=== PATIENT | female | born 1955 | race Caucasian/White ===

== ENCOUNTER → 2018-03-31 | Outpatient (CLI) | payer OTHER ==
[~2018-03-31] MED LIST: AMIT150T PO; FENTANYL PF 250 MCG/5ML ONE; GABA300C10 PO; LEVO125T5 PO; LISI1TAB5 PO; METF10003 PO; METO-95 PO; MIDAZOLAM 1 MG/ML, 2ML ONE; PANT40TA3 PO; SIMV40TA3 PO; TIZA4CAP PO
[2018-03-31 13:55] LABS: ALANINE AMINOTRANSFERASE 27 U/L (12-78); ALBUMIN 3.6 g/dL (3.4-5.0); ANION GAP 7 mmol/L (5-15); CALCIUM 8.6 mg/dL (8.5-10.1); CHLORIDE 110 mmol/L (98-107); CREATININE 1.06 mg/dL (0.55-1.02)
[2018-03-31 13:57] LABS: ALKALINE PHOSPHATASE 90 U/L (45-117); BILIRUBIN,TOTAL 0.3 mg/dL (0.2-1.0); TOTAL PROTEIN 7.7 g/dL (6.4-8.2)
== END | disposition home or self-care (01) ==
LOC: STAR 12:40
PROVIDERS: ATTEND Plastic Surgery
DX: Z01.812 Encounter for preprocedural laboratory examination (principal)
CPT/HCPCS: 36415; 80053; 93005

== ENCOUNTER 2018-04-06 13:53 | Day surgery (SDC) | payer OTHER ==
[~2018-04-06] VITALS: Ht 172.7 cm; Wt 114.5 kg
[~2018-04-06 13:53] MED LIST changes: -FENTANYL PF 250 MCG/5ML ONE; -MIDAZOLAM 1 MG/ML, 2ML ONE
[2018-04-06] MEDS ORDERED: LACTATED RINGERS 1,000 ML IV SCH (14:30)
[2018-04-06 14:32] VITALS: BP 120/74
[2018-04-06] MEDS ORDERED: BUPIVACAINE/PF-EPI 0.25% 1:200K ONE (14:47)
[2018-04-06] MEDS ORDERED: ACETAMINOPHEN 500 MG TABLET ONE ×2 (14:52)
[2018-04-06] MEDS ORDERED: GABAPENTIN 300 MG CAPSULE ONE (14:52)
[2018-04-06] MEDS ORDERED: SCOPOLAMINE PATCH, 1.5MG PATCH.TD72 TD ONE (14:54)
[2018-04-06] MEDS ORDERED: DEXAMETHASONE 4 MG/ML, 1ML ONE (15:10)
[2018-04-06] MEDS ORDERED: CEFAZOLIN 1,000 MG ONE (15:10)
[2018-04-06] MEDS ORDERED: PROPOFOL 10 MG/ML, 20ML ONE (15:10)
[2018-04-06] MEDS ORDERED: ONDANSETRON 2MG/ML, 2ML ONE (15:10)
[2018-04-06] MEDS ORDERED: BUPIVACAINE/PF-EPI 0.25% 1:200K IM ONE (15:38)
[2018-04-06] MEDS ORDERED: MORPHINE SULFATE 4 MG/ML, 1ML IVPush PRN (16:00)
[2018-04-06] MEDS ORDERED: MEPERIDINE/PF 25MG/0.5ML IVPush PRN (16:00)
[2018-04-06] MEDS ORDERED: DIAZEPAM 5 MG/ML, 2ML IVPush PRN (16:00)
[2018-04-06] MEDS ORDERED: OXYcodone 5 MG/5 ML ORAL.SOL UDC PO PRN (16:00)
[2018-04-06] MEDS ORDERED: FENTANYL PF 100 MCG/2ML ONE ×2 (17:11→17:38)
[2018-04-06] MEDS ORDERED: MORPHINE SULFATE 4 MG/ML, 1ML ONE (17:12)
[2018-04-06] MEDS ORDERED: OXYcodone 5 MG/5 ML ORAL.SOL UDC ONE (17:12)
[2018-04-06] MEDS: FENTANYL PF 100 MCG/2ML IV PRN ×4 (17:20→18:03)
[2018-04-06] MEDS ORDERED: DIAZEPAM 5 MG TABLET ONE (17:39)
[2018-04-06] MEDS ORDERED: DIAZEPAM 5 MG TABLET PO ONE (18:00)
== END 2018-04-06 20:50 | disposition home or self-care (01) ==
LOC: OR 13:53 → 4NOR 18:36 → OR 20:50
PROVIDERS: ATTEND Plastic Surgery
DX: N62 Hypertrophy of breast (principal); N64.89 Other specified disorders of breast; E11.9 Type 2 diabetes mellitus without complications; F17.210 Nicotine dependence, cigarettes, uncomplicated; K21.9 Gastro-esophageal reflux disease without esophagitis; E78.2 Mixed hyperlipidemia; E89.0 Postprocedural hypothyroidism; Z98.890 Other specified postprocedural states; Z79.899 Other long term (current) drug therapy; Z85.89 Personal history of malignant neoplasm of other organs and systems; Z90.49 Acquired absence of other specified parts of digestive tract; Z90.710 Acquired absence of both cervix and uterus; Z90.722 Acquired absence of ovaries, bilateral; Z72.89 Other problems related to lifestyle
CPT/HCPCS: 19318; 82962; 88307; J0690; J1100; J2250; J2405; J2704; J3010

== ENCOUNTER 2019-01-25 14:56 | Inpatient (IN) | payer MEDICARE, OTHER ==
[~2019-01-25] VITALS: Ht 170.2 cm; Wt 100.1 kg
[~2019-01-25 14:56] MED LIST changes: -METF10003 PO; +METF10007 PO
[2019-01-25] MEDS ORDERED: SODIUM CHLORIDE 0.9% 1,000 ML IV ONE (15:28)
[2019-01-25] MEDS ORDERED: SODIUM CHLORIDE 0.9% 1,000ML IVBOLUS ONE ×2 (15:30→16:30)
[2019-01-25] MEDS ORDERED: SODIUM CHLORIDE FLUSH 10ML SYR IVF ONE (15:30)
--- NOTE | 2019-01-25 15:31 | NUR ---
PT RANCHO [facility] FROM [facility] FOR ALTERED MENTAL STATUS X2 WEEKS AND ABNORMAL LABS DRAWN YESTERDAY. LAB RESULTS UNKNOWN AT THIS TIME. PT CONNECTED TO ALL MONITORS UPON ARRIVAL. AFIB 90S-100S. 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 PER SON, NO HX AFIB. 2L NC PLACED FOR RA O2 SAT 90%. BP 86/50. IV ESTABLISHED IN ROUTE AND 150ML NS ADMINISTERED DUMBWAITER OPERATOR FOR HYPOTENSION. EDMD ASSESSMENT COMPLETE. AWAITING ORDERS AT THIS TIME.
--- NOTE | 2019-01-25 15:55 | NUR ---
PT RESTING IN ROOM. REMAINS ALTERED. SON AT BEDSIDE TO REORIENT FREQUENTLY. VSS. MEDIACTED PER MAR. IVF INFUSING NOW. UA COLLECTED VIA STRAIGHT CATH. LAB AT TO DRAW NOW. CXR COMPLETE. AWAITING RESULTS.
[2019-01-25 16:13] LABS: CULTURE INDICATED? YES; MICROSCOPIC INDICATED
[2019-01-25] MEDS ORDERED: CEFTRIAXONE PMX 1GM/50ML 50 ML IV ONE (16:30)
[2019-01-25 16:55] LABS: BASOPHILS # (AUTO) 0.03 x10^3/uL (0-0.1); BASOPHILS % (AUTO) 0 % (0-1); EOSINOPHILS % (AUTO) 0 % (1-7); LYMPHOCYTES # (AUTO) 2.35 x10^3/uL (1-3.4); LYMPHOCYTES % (AUTO) 29 % (22-44); MD NO; MEAN CORPUSCULAR HEMOGLOBIN 30.2 pg (27.0-34.8); MEAN CORPUSCULAR HGB CONC 31.1 g/dL (32.4-35.8); MEAN CORPUSCULAR VOLUME 97.4 fL (80-100); MEAN PLATELET VOLUME 7.7 fL (7.4-10.4); MONOCYTES % (AUTO) 1 % (2-9); NEUTROPHILS # (AUTO) 5.61 x10^3/uL (1.8-6.8); NEUTROPHILS % (AUTO) 69 % (42-75); PLATELET COUNT 316 x10^3/uL (130-400); RED BLOOD COUNT 3.12 x10^6/uL (3.82-5.3); RED CELL DISTRIBUTION WIDTH 20.4 % (9.6-15.2)
[2019-01-25 17:05] LABS: INTERNATIONAL NORMALIZED RATIO 1.14 (0.93-1.1); PROTHROMBIN TIME 11.9 Seconds (9.6-11.5)
[2019-01-25 17:09] LABS: ALANINE AMINOTRANSFERASE 16 U/L (12-78); ANION GAP 9 mmol/L (5-15); CALCIUM 7.5 mg/dL (8.5-10.1); CHLORIDE 119 mmol/L (98-107); CREATININE 1.06 mg/dL (0.55-1.02)
[2019-01-25 17:14] LABS: ALKALINE PHOSPHATASE 192 U/L (45-117); BILIRUBIN,TOTAL 0.5 mg/dL (0.2-1.0)
--- NOTE | 2019-01-25 17:22 | NUR ---
FIRST BOLUS STILL INFUSING ON PRESSURE BAG. MULTIPLE UNSUCCESSFUL ATTEMPTS AT IV STARTS FOR SECOND IV. SBP REMAINS IN THE 70S. ALL OTHER VSS. US GUIDED IV BEING ATTEMPTED NOW.
[2019-01-25] MEDS ORDERED: ONDANSETRON 2MG/ML, 2ML IVPush ONE (18:00)
[2019-01-25] MEDS ORDERED: NOREPINEPHRINE 4 MG in SODIUM CHLORIDE 0.9% 246 ML IV PRN ×2 (18:57→20:47)
--- NOTE | 2019-01-25 19:00 | NUR ---
REPORT FROM ASHLEIGH MARRERO. CENTERAL LINE PLACED. PT HYPOTENSIVE. ASKED MT TO CALL PHARMACY FOR LEVO.
--- NOTE | 2019-01-25 19:10 | NUR ---
REQUESTED ASSITANCE FROM HOTEL ASSISTANT MANAGER.
--- NOTE | 2019-01-25 19:46 | NUR ---
TASK NURSE; FIRST CONTACT WITH PT, INCREASED LEVOPHED BP RESPONDED IMEDIATLY
[2019-01-25] MEDS ORDERED: ONDANSETRON 2MG/ML, 2ML ONE (19:53)
[2019-01-25] MEDS ORDERED: CEFTRIAXONE PMX 1GM/50ML 50 ML ONE (19:53)
[2019-01-25] MEDS ORDERED: SODIUM CHLORIDE FLUSH 10ML SYR IVF PRN (20:00)
--- NOTE | 2019-01-25 20:15 | NUR ---
LATE ENTRY: TEMP BANEGAS PLACED. LEFT EJ 18 ESTABLISHED BUT VERY POSITIONAL. IVF CONTINUED IN BOTH LINES WITH LITTLE RESPONE IN BP. WATER SOFTENER SERVICER NOTIFIED. PT MOVED TO T4 AND CENTRAL LINE PLACED. REPORT GIVEN TO ASHLEIGH WALKER.
--- NOTE | 2019-01-25 20:34 | NUR ---
AWAITING ADMIT, PT IN NAD RESTING COMFORTABLY
[2019-01-25] MEDS ORDERED: ONDANSETRON 2MG/ML, 2ML IVPush PRN (21:00)
[2019-01-25] MEDS ORDERED: PHARMACY MAY ADJ FOR RENAL FX MC PRN (21:00)
--- NOTE | 2019-01-25 22:23 | NUR ---
REPORT TO DELIO PT TO ICU WITH RN AND TECH ON MONITORS
[2019-01-25 22:51] LABS: TROPONIN I < 0.015 ng/mL (0.000-0.045)
[2019-01-26] MEDS: NOREPINEPHRINE 8 MG in SODIUM CHLORIDE 0.9% 242 ML IV PRN ×3 (01:03→23:16)
[2019-01-26] MEDS ORDERED: VASOPRESSIN 100 UNIT in SODIUM CHLORIDE 0.9% 495 ML IV PRN (01:30)
[2019-01-26] MEDS ORDERED: SODIUM CHLORIDE 0.9% 1,000 ML IV SCH (01:30)
[2019-01-26] MEDS ORDERED: CIPROFLOXACIN/PMX 400MG/200ML 200 ML IV ONE (01:30)
[2019-01-26] MEDS ORDERED: PIPERACILLIN/TAZO/PMX 4.5GM 100 ML IV SCH (01:30)
[2019-01-26] MEDS ORDERED: ALBUMIN HUMAN 5% 500 ML IV ONE (01:30)
[2019-01-26 02:12] LABS: BASOPHILS # (AUTO) 0.01 x10^3/uL (0-0.1); BASOPHILS % (AUTO) 0 % (0-1); EOSINOPHILS % (AUTO) 0 % (1-7); LYMPHOCYTES # (AUTO) 0.97 x10^3/uL (1-3.4); LYMPHOCYTES % (AUTO) 12 % (22-44); MD NO; MEAN CORPUSCULAR HEMOGLOBIN 29.9 pg (27.0-34.8); MEAN CORPUSCULAR HGB CONC 30.9 g/dL (32.4-35.8); MEAN CORPUSCULAR VOLUME 96.8 fL (80-100); MEAN PLATELET VOLUME 7.6 fL (7.4-10.4); MONOCYTES # (AUTO) 0.08 x10^3/uL (0.2-0.8); MONOCYTES % (AUTO) 1 % (2-9); NEUTROPHILS # (AUTO) 7.13 x10^3/uL (1.8-6.8); NEUTROPHILS % (AUTO) 87 % (42-75); PLATELET COUNT 294 x10^3/uL (130-400); RED BLOOD COUNT 3.72 x10^6/uL (3.82-5.3); RED CELL DISTRIBUTION WIDTH 19.3 % (9.6-15.2)
[2019-01-26 02:22] LABS: ANION GAP 12 mmol/L (5-15); CALCIUM 6.6 mg/dL (8.5-10.1); CHLORIDE 127 mmol/L (98-107); CREATININE 1.07 mg/dL (0.55-1.02)
[2019-01-26 02:26] LABS: TROPONIN I < 0.015 ng/mL (0.000-0.045)
[2019-01-26] MEDS: LINEZOLID PMX 600MG/300ML 300 ML IV SCH ×2 (02:31→15:06)
[2019-01-26 02:39] LABS: PREALBUMIN 5.4 mg/dL (20.0-40.0)
[2019-01-26 04:12] VITALS: BP 96/69
[2019-01-26] MEDS: PIPERACILLIN/TAZO/PMX 3.375GM 50 ML IV SCH ×3 (08:39→19:34)
[2019-01-26] MEDS ORDERED: CEFTRIAXONE PMX 1GM/50ML 50 ML IV SCH (09:00)
[2019-01-26 11:21] LABS: CLOSTRIDIUM DIFFICILE ANTIGEN POSITIVE; CLOSTRIDIUM DIFFICILE TOXIN POSITIVE (Negative)
[2019-01-26] MEDS: FAMOTIDINE 20 MG/2 ML IVPush SCH ×2 (11:37→20:45)
[2019-01-26] MEDS: ENOXAPARIN 40 MG/0.4 ML SQ SCH (11:37)
[2019-01-26] MEDS: VANCOMYCIN 50 MG/ML ORAL SUSP PO SCH ×2 (12:00→19:28)
[2019-01-26] MEDS: INSULIN LISPRO 100 UNITS/ML, PEN SQ-INSULIN SCH ×3 (12:21→20:45)
[2019-01-26 13:18] LABS: ALANINE AMINOTRANSFERASE 12 U/L (12-78); ALBUMIN 1.3 g/dL (3.4-5.0); ANION GAP 14 mmol/L (5-15); CALCIUM 6.5 mg/dL (8.5-10.1); CHLORIDE 123 mmol/L (98-107); CREATININE 1.28 mg/dL (0.55-1.02)
[2019-01-26 13:20] LABS: ALKALINE PHOSPHATASE 131 U/L (45-117); BILIRUBIN,TOTAL 0.3 mg/dL (0.2-1.0); TOTAL PROTEIN 4.3 g/dL (6.4-8.2)
[2019-01-26] MEDS: SODIUM CHLORIDE 0.9% 1,000 ML IV SCH (13:42)
[2019-01-27] MEDS: VANCOMYCIN 50 MG/ML ORAL SUSP PO SCH ×5 (00:07→23:48)
[2019-01-27] MEDS: SODIUM CHLORIDE 0.9% 1,000 ML IV SCH (00:18)
[2019-01-27] MEDS: PIPERACILLIN/TAZO/PMX 3.375GM 50 ML IV SCH ×4 (02:06→21:30)
[2019-01-27] MEDS: LINEZOLID PMX 600MG/300ML 300 ML IV SCH ×2 (02:41→15:34)
[2019-01-27 04:00] VITALS: BP 88/48
[2019-01-27 04:14] LABS: MEAN CORPUSCULAR HEMOGLOBIN 30.2 pg (27.0-34.8); MEAN CORPUSCULAR HGB CONC 30.9 g/dL (32.4-35.8); MEAN CORPUSCULAR VOLUME 97.6 fL (80-100); RED BLOOD COUNT 2.73 x10^6/uL (3.82-5.3); RED CELL DISTRIBUTION WIDTH 19.2 % (9.6-15.2)
[2019-01-27 04:32] LABS: MD YES
[2019-01-27 04:33] LABS: MEAN PLATELET VOLUME 8.2 fL (7.4-10.4); PLATELET COUNT 169 x10^3/uL (130-400)
[2019-01-27 04:39] LABS: BAND#(MANUAL) 0.37 x10^3/uL; BANDS%(MANUAL) 4 % (0-7); LYMPH#(MANUAL) 1.38 x10^3/uL (1-3.4); LYMPHS% (MANUAL) 15 % (22-44); SEG#(MANUAL) 7.45 x10^3/uL (1.8-6.8); SEGS% (MANUAL) 81 % (42-75)
[2019-01-27 04:40] LABS: ANISOCYTOSIS 1+; POLYCHROMASIA 1+
[2019-01-27 04:41] LABS: <PLATELET ESTIMATE> ADEQUATE; <PLT MORPHOLOGY> NORMAL PLT MORPH
[2019-01-27 07:43] LABS: ALANINE AMINOTRANSFERASE 11 U/L (12-78); ANION GAP 12 mmol/L (5-15); CHLORIDE 126 mmol/L (98-107); CREATININE 1.19 mg/dL (0.55-1.02)
[2019-01-27 07:45] LABS: ALKALINE PHOSPHATASE 117 U/L (45-117); BILIRUBIN,TOTAL 0.2 mg/dL (0.2-1.0); TOTAL PROTEIN 3.9 g/dL (6.4-8.2)
[2019-01-27] MEDS: INSULIN LISPRO 100 UNITS/ML, PEN SQ-INSULIN SCH ×4 (08:12→21:31)
[2019-01-27] MEDS: METRONIDAZOLE PMX 500MG/100ML 100 ML IV SCH ×3 (09:30→21:29)
[2019-01-27] MEDS: SODIUM BICARB 8.4% IV SCH ×2 (09:32→21:29)
[2019-01-27] MEDS: DEXTROSE 5% IV SCH ×2 (09:32→21:29)
[2019-01-27] MEDS: POTASSIUM CHLORIDE IV SCH ×2 (09:32→21:29)
[2019-01-27] MEDS: FAMOTIDINE 20 MG/2 ML IVPush SCH ×2 (09:40→21:29)
[2019-01-27] MEDS: ENOXAPARIN 40 MG/0.4 ML SQ SCH (09:40)
[2019-01-27] MEDS: NOREPINEPHRINE 8 MG in SODIUM CHLORIDE 0.9% 242 ML IV PRN ×2 (10:59→21:29)
[2019-01-27] MEDS ORDERED: OMNIPAQUE 350 MG/ML, 100ML BOTTLE ONE (11:47)
[2019-01-27] MEDS: ACETAMINOPHEN 325 MG TABLET PO PRN (23:48)
[2019-01-28] MEDS: METRONIDAZOLE PMX 500MG/100ML 100 ML IV SCH ×2 (03:40→08:51)
[2019-01-28] MEDS: PIPERACILLIN/TAZO/PMX 3.375GM 50 ML IV SCH ×2 (03:40→09:29)
[2019-01-28 04:00] VITALS: BP 106/69
[2019-01-28] MEDS: LINEZOLID PMX 600MG/300ML 300 ML IV SCH (04:00)
[2019-01-28 04:46] LABS: MEAN CORPUSCULAR HEMOGLOBIN 30.1 pg (27.0-34.8); MEAN CORPUSCULAR VOLUME 97.1 fL (80-100); MEAN PLATELET VOLUME 8.7 fL (7.4-10.4); PLATELET COUNT 162 x10^3/uL (130-400); RED BLOOD COUNT 2.76 x10^6/uL (3.82-5.3)
[2019-01-28 04:48] LABS: ALANINE AMINOTRANSFERASE 11 U/L (12-78); ALBUMIN 0.9 g/dL (3.4-5.0); ANION GAP 12 mmol/L (5-15); CHLORIDE 123 mmol/L (98-107); CREATININE 1.19 mg/dL (0.55-1.02)
[2019-01-28 04:50] LABS: ALKALINE PHOSPHATASE 119 U/L (45-117); BILIRUBIN,TOTAL 0.2 mg/dL (0.2-1.0); TOTAL PROTEIN 3.7 g/dL (6.4-8.2)
[2019-01-28 04:56] LABS: CALCIUM 5.7 mg/dL (8.5-10.1)
[2019-01-28 05:24] LABS: BASOPHILS # (AUTO) 0.03 x10^3/uL (0-0.1); BASOPHILS % (AUTO) 0 % (0-1); EOSINOPHILS % (AUTO) 0 % (1-7); LYMPHOCYTES % (AUTO) 21 % (22-44); MD SCAN; MONOCYTES # (AUTO) 0.02 x10^3/uL (0.2-0.8); MONOCYTES % (AUTO) 0 % (2-9); NEUTROPHILS # (AUTO) 8.04 x10^3/uL (1.8-6.8); NEUTROPHILS % (AUTO) 78 % (42-75)
[2019-01-28] MEDS: ACETAMINOPHEN 325 MG TABLET PO PRN (05:29)
[2019-01-28] MEDS: VANCOMYCIN 50 MG/ML ORAL SUSP PO SCH (05:30)
[2019-01-28] MEDS ORDERED: FENTANYL PF 100 MCG/2ML IV PRN (08:30)
[2019-01-28] MEDS: FAMOTIDINE 20 MG/2 ML IVPush SCH ×2 (08:51→18:23)
[2019-01-28] MEDS: ENOXAPARIN 40 MG/0.4 ML SQ SCH (08:51)
[2019-01-28] MEDS: NOREPINEPHRINE 8 MG in SODIUM CHLORIDE 0.9% 242 ML IV PRN (08:58)
[2019-01-28] MEDS ORDERED: INSULIN LISPRO 100 UNITS/ML, PEN SQ-INSULIN SCH (09:00)
[2019-01-28] MEDS: DEXTROSE 5% IV SCH (09:29)
[2019-01-28] MEDS: SODIUM BICARB 8.4% IV SCH (09:29)
[2019-01-28] MEDS: POTASSIUM CHLORIDE IV SCH (09:29)
[2019-01-28] MEDS ORDERED: LORazepam INTENSOL 2 MG/ML SL PRN (11:00)
[2019-01-28] MEDS ORDERED: MORPHINE SULFATE 4 MG/ML, 1ML IVPush PRN ×2 (11:00)
[2019-01-28] MEDS ORDERED: LORazepam 2 MG/ML, 1ML IVPush PRN (11:00)
[2019-01-28] MEDS ORDERED: morphine SULFATE ORAL.CONC 20 MG/ML SL PRN (11:00)
[2019-01-28] MEDS ORDERED: morphine SULFATE ORAL.CONC 20 MG/ML BC PRN (11:00)
[2019-01-28] MEDS ORDERED: morphine SULFATE 125 MG in SODIUM CHLORIDE 0.9% 237.5 ML IV PRN (21:30)
== END 2019-01-29 00:37 | disposition expired | DRG 871 ==
LOC: ED 20:38 → EDIP 20:45 → ICU 22:12 → CCU 01-27 14:25 → 3NW 01-28 18:04
PROVIDERS: ADMIT Internal Medicine; ATTEND Internal Medicine
PROC: 02HV33Z Insertion of Infusion Device into Superior Vena Cava, Percutaneous Approach (ICD-10-PCS; principal; 2019-01-25)
PROC: B548ZZA Ultrasonography of Superior Vena Cava, Guidance (ICD-10-PCS; 2019-01-25)
PROC: 0T9B70Z Drainage of Bladder with Drainage Device, Via Natural or Artificial Opening (ICD-10-PCS; 2019-01-25)
DX: A41.9 Sepsis, unspecified organism (principal); L89.154 Pressure ulcer of sacral region, stage 4; R65.21 Severe sepsis with septic shock; E43 Unspecified severe protein-calorie malnutrition; G92 Toxic encephalopathy; A04.72 Enterocolitis due to Clostridium difficile, not specified as recurrent; N12 Tubulo-interstitial nephritis, not specified as acute or chronic; E87.0 Hyperosmolality and hypernatremia; I10 Essential (primary) hypertension; E11.9 Type 2 diabetes mellitus without complications; M19.90 Unspecified osteoarthritis, unspecified site; Z51.5 Encounter for palliative care; E66.9 Obesity, unspecified; D63.8 Anemia in other chronic diseases classified elsewhere; E03.9 Hypothyroidism, unspecified; I48.91 Unspecified atrial fibrillation; B96.20 Unspecified Escherichia coli [E. coli] as the cause of diseases classified elsewhere; B95.2 Enterococcus as the cause of diseases classified elsewhere; Z66 Do not resuscitate; R31.9 Hematuria, unspecified; Z74.01 Bed confinement status; Z79.84 Long term (current) use of oral hypoglycemic drugs; Z79.899 Other long term (current) drug therapy; Z68.34 Body mass index [BMI] 34.0-34.9, adult; Z88.6 Allergy status to analgesic agent; Z88.8 Allergy status to other drugs, medicaments and biological substances; L89.152 Pressure ulcer of sacral region, stage 2
CPT/HCPCS: 36415; 36600; 70450; 71045; 74018; 74177; 76770; 80048; 80053; 81001; 82140; 82803; 82962; 83605; 83690; 83735; 83880; 84100; 84134; 84145; 84439; 84443; 84484; 85025; 85610; 85730; 87040; 87046; 87077; 87081; 87086; 87186; 87324; 87427; 93005; 93306; 99291; G0378; J0696; J1650; J2020; J2270; J2405; J2543; J3370; J3480; J7070; P9045; Q9967; J1815; J2060; J3490; J7030; J7040; J7050